=== PATIENT | female | born 2000 | race Hispanic/Latino ===

== ENCOUNTER 2024-06-22 15:18 | Emergency (ER) | payer SELFPAY ==
--- OUTSIDE RECORDS SUMMARY | 2024-06-22 15:23 | XMS REPORT | Continuity of Care Document ---
Author Name Unknown Address [address] [facility] [address] [place] [address] [facility] Address [address] [facility] [place] [address] Care Team Providers Care Processing Lead Name Role Phone Lexie Campuzano Attending Clinician Unav Ty Ta Attending Clinician Unavailable Piyush Banerjee Attending Clinician Unavailable Laura Whitney Attending Clinician Unavailable Carlo Dunbar Attending Clinician Unavailable Lexie Campuzano Admitting Clinician Unav Piyush Aguirre Admitting Clinician Unavailable Laura Whitney Admitting Clinician Unavailable Physician, No Primary or Family Admitting Clinic georges Unavailable Payers Payer Name Policy Type Policy Number Effective Date Expirati on Date Source Allergies, Adverse Reactions, Alerts Allergy Name Allergy Type Status Severity Reaction(s) Onset Date Inactive Date Treating Clinician Comments Source No Known Allergie s DA Active U 07-06 00:00: 00 [facility] No Known Allergie s DA Active U 07-05 00:00: 00 [facility] Procedures Procedure Date / Time Performed Performing Clinicia n Source [id number] 2021-07-12 00:00:00 CANCH.02 [facility] [id number] 2021-07-12 00:00:00 TAYAL01 [facility] Encounters Start Date/Time End Date/Time Encounter Type Admission Type Attending [facility] Care Department Encounter ID Source 2021-07-12 05:58:00 Inpatient EM [facility] [id number] [facility] 2024-01-28 17:40:00 2024-01-28 19:14:00 Emergency EM [facility] [id number] [facility] 2021-07-12 05:58:00 2021-07-25 10:51:00 Inpatient EM Piyush Banerjee [facility] [id number] [facility] 2021-07-06 18:09:00 2021-07-12 03:50:00 Inpatient EM Laura Whitney [facility] [id number] [facility] 2021-07-06 18:09:00 2021-07-06 07:11:00 Inpatient EM Laura Whitney [facility] [id number] [facility] 2021-04-02 16:48:00 2021-04-02 18:58:00 Emergency EM Carlo Dunbar [facility] ISAI [id number] [facility] Results Test Description Test Time Test Comments Results Result Co mments Source AG HEPATITIS B [id number] 09:17:00* Test Item Value Reference Range Interpretation Comme nts AG HEPATITIS B SURFACE (test code = HBSAG) Negative Negative Performed At : [facility] [address] [id number] Conor Plascencia MD Ph:[phone] HGB [id number] 07:16:00* Test Item Value Reference Range Interpretation Comme nts HEMOGLOBIN (test code = HGB) 10.8 G/DL 12.0-16.0 L HEMATOCRIT (test code = HCT) 31.3 % 37-47 L MEAN CELL HGB CONCENTRATION (test code = MCHC) 34.5 G/DL 33-37 N RAPID PLASMA [id number] 10:12:00* Test Item Value Reference Range Interpretation Comme nts RAPID PLASMA REAGIN (test co de = RPR) Nonreactive Nonreactive DRUG OF ABUSE SCREEN [id number] 08:28:00* Test Item Value Reference Range Interpretation Comments UR COCAINE (test code = COCAU) NEGATIVE NEGATIVE UR MDMA (test code = MDMAQLU) POSITIVE NEGATIVE A If confirmatory testing required, contact laboratory. UR CANNABINOIDS (test code = CANU) POSITIVE NEGATIVE A If confirmato ry testing required, contact laboratory. UR AMPHETAMINE (test code = AMPHU) NEGATIVE NEGATIVE UR BARBITURATE QUAL (test code = BARBQLU) NEGATIVE NEGATIVE UR BENZODIAZEPINE (test code = BENZU) NEGATIVE NEGATIVE UR OPIATES QUAL (test code = OPIAQLU) NEGATIVE NEGATIVE UR PHENCYCLIDINE (PCP) (test code = PHENCU) NEGATIVE NEGATIVE Urine Drug Abuse Screen provides preliminary results thatmay be confirmed by alternate methods (i.e., GC/MS) [facility]. Results of screen may not be usedin criminal justice, job performance or professionalcredential review, or custody issues. Negative Mentone Level ng/ml ----- Cocaine 300 Methamphetamine (Ecstacy) 500 Cannabinoids (THC) 50 Amphetamine 1000 Barbiturates 200 Benzodiazepines 200 Opiates 300 Phencyclidine (PCP) 25 COVID 19 Asymptomatic IH [id number] 07:48:00* Test Item Value Reference Range Interpretation Comments COVID 19 Asymptomatic IH AG (test code = COVNONPUIAG) NEGATIVE Negative " The Leigh Ann SARS Antigen MIGUEL does not differentiate betweenSARS-CoV and SARS-CoV-2 " The Leigh Ann SARS Antigen MIGUEL employs immunofluorescencetechnology in a sandwich design that is used with Leigh Ann todetect nucleocapsid protein from SARS-CoV and SARS-CoV-2.This test allows for the detection of SARS-CoV nghIPON-ExE-6. The test detects, but does not differentiate,between the two viruses. " Results are for the identification of PPXK-TcK-5jthxwmlpactt protein antigen. Antigen is generallydetectable in upper respiratory specimens during the acutephase of infection. Positive results indicate the presenceof viral antigens, but clinical correlation with patienthistory and other diagnostic information is necessary todetermine infection status. Positive results do not rule outbacterial infection or co-infection with other viruses. Theagent detected may not be the definite cause of disease. " Negative results should be treated as presumptive " This test has not been FDA cleared or approved; the testhas been authorized by FDA under an Emergency UseAuthorization (EUA) for use by laboratories certified undert CLIA that meet the requirements to perform moderate,high or waived complexity tests. This test is authorized foruse at the Point of Care (POC), i.e., in patient caresettings operating under a CLIA Certificate of Waiver,Certificate of Compliance, or Certificate of Accreditation Use BINAX NOW test: YESCBC W/AUTO [id number] 07:04:00* Test Item Value Reference Range Interpretation Comme nts WHITE BLOOD CELL (test code = WBC) 14.38 x10 3/uL 4.80-10.80 H RED BLOOD CELL (test code = RBC) 3.86 x10 6/uL 4.2-5.4 L HEMOGLOBIN (test code = HGB) 12.2 G/DL 12.0-16.0 N HEMATOCRIT (test code = HCT) 35.4 % 37-47 L MEAN CELL VOLUME (test code = MCV) 91.7 FL 81-99 N MEAN CELL HGB (test code = MCH) 31.6 PG 27-31 H MEAN CELL HGB CONCENTRATION (test code = MCHC) 34.5 G/DL 33-37 N RED CELL DISTRIBUTION WIDTH (test code = RDW) 12.5 % 11.5-14.5 N PLATELET COUNT (test code = PLT) 249 x10 3/uL 150-450 N MEAN PLATELET VOLUME (test code = MPV) 10.1 FL 7.4-10.4 N NEUTROPHIL % (test code = NT%) 89.0 % 42-86 H IMMATURE GRANULOCYTE % (test code = IG%) 0.9 % 0.0-2.0 N LYMPHOCYTE % (test code = LY%) 7.2 % 24-44 L MONOCYTE % (test code = MO%) 2.7 % 0.0-4.0 N EOSINOPHIL % (test code = EO%) 0.0 % 0.0-2.7 N BASOPHIL % (test code = BA%) 0.2 % 0.0-0.5 N NUCLEATED RBC % (test code = NRBC%) 0.0 % 0.0-0.0 N NEUTROPHIL # (test code = NT#) 12.79 x10 3/uL 1.8-7.7 H IMMATURE GRANULOCYTE # (test code = IG#) 0.13 x10 3/uL 0.00-0.03 H LYMPHOCYTE # (test code = LY#) 1.04 x10 3/uL 1.0-4.8 N MONOCYTE # (test code = MO#) 0.39 x10 3/uL 0.0-0.8 N EOSINOPHIL # (test code = EO#) 0.00 x10 3/uL 0.0-0.5 N BASOPHIL # (test code = BA#) 0.03 x10 3/uL 0.0-0.2 N NUCLEATED RBC # (test code = NRBC#) 0.0 X10 3/uL 0.0-0.2 N [id number] 11:47:00* Test Item Value Reference Range Interpretation Comme nts GLUBED (test code = GLUBED) 71 MG/DL 65-99 N Performed by cer tified tufting machine operator single needle at [facility] LIPID PROFILE (CORONARY RISK)2021-07-06 19:49:00* Test Item Value Reference Range Interpretation Comme nts TRIGLYCERIDES (test code = TRIG) 136 MG/DL 30-200 N CHOLESTEROL (test code = CHOL) 302 MG/DL 122-200 H CHOLESTEROL/HDL RATIO (test code = CHOLHDL) 3.2 1.5-4.5 N 1. Initial classification based on total cholesterol: <200 mg/dl Desirable cholesterol 200-239 mg/dl Borderline high risk cholesterol >240 mg/dl High risk cholesterol2. Initial classification based on LDL cholesterol: <130 mg/dl Desirable LDL cholesterol 130-159 mg/dl Borderline high risk LDL >159 mg/dl High risk LDL cholesterol3. HDL < 35 mg/dl represent increased CHD risk; HDL > 60 mg/dl represent decreased CHD risk.4. Chol/HDL > 5.0 represent increased CHD risk in men; Chol/HDL > 4.5 represent increased CHD risk in women. HDL CHOLESTEROL (test code = HDL) 95 MG/DL 40-60 H LIPOPROTEIN LDL (test code = LDL) 180 MG/DL 62-130 H LIPOPROTEIN VLDL (test code = VLDL) 27 MG/DL 3-60 N THYROID STIMULATING [id number] 19:49:00* Test Item Value Reference Range Interpretation Comme nts THYROID STIMULATING HORMONE (test code = TSH) 1.61 0.42-5.47 N Micro- International Units/LResults of this assay method may be falsely depressed orelevated if patient is taking high doses of Biotin. GLYCOSYLATED HEMOGLOBIN (HA1C)2021-07-06 19:44:00* Test Item Value Reference Range Interpretation Comme nts GLYCOSYLATED HEMOGLOBIN (HA1 C) (test code = GLYHGB) 5.2 % TOT HB 4.5-6.2 N - DUP VEIN [id number] 15:44:00 [facility] : 2000 Sex: F Patient Name: LAUREN AGUIRRE Unit No: [id number] EXAMS: CPT CODE: [id number] DUP V EIN NAIN [id number] EXAMINATION: - DUP VEIN NAIN. LOCATION: 2. HISTORY: Chest pain, SOB, abdominal pain,chest tightness, currently . COMPARISON: CTA chest 07/06/2021. FINDINGS: Sonographic evaluation of bilateral lower extremities was performed from the common femoral veins to the popliteal trifurcations utilizing grayscale, pulse Doppler, and color flow imaging. The veins are normally compressible. There is normal respiratory phasicity and augmentation demonstrated. Color flow is demonstrated. The visualized proximal calf veins demonstrate flow on color imaging. IMPRESSION: No evidence ofdeep venous thrombus in the visualized portions of the bilateral lower extremities. at 1544 Reported and signed by: Shayan Marquez MD CC: Lexie Campuzano MD; Fany Aviles MD; Kimberli Velásquez MD Technologist: Mackenzie Myles Trnscrbd D/ (1544) [email or web address] Orig Print D/T: S: 07/06/2021 (6881) Probe: [facility] NAME: LAUREN AGUIRRE [address] PHYS: [place] [address] : 2000 AGE: 21 SEX: F LOC: ANA PHONE #: [phone] EXAM DATE: 07/06/2021 STATUS: REG ER FAX #: RAD NO: Page 1 Signed ReportCOVID 19 Asymptomatic IH AG 2021-07-06 15:30:00* Test Item Value Reference Range Interpretation Comments COVID 19 Asymptomatic IH AG (test code = COVNONPUIAG) NEGATIVE Negative " The Leigh Ann SARS Antigen MIGUEL does not differentiate betweenSARS-CoV and SARS-CoV-2 " The Leigh Ann SARS Antigen MIGUEL employs immunofluorescencetechnology in a sandwich design that is used with Leigh Ann todetect nucleocapsid protein from SARS-CoV and SARS-CoV-2.This test allows for the detection of SARS-CoV livXYGX-PuE-2. The test detects, but does not differentiate,between the two viruses. " Results are for the identification of JULV-UpY-5cbhxlskczngj protein antigen. Antigen is generallydetectable in upper respiratory specimens during the acutephase of infection. Positive results indicate the presenceof viral antigens, but clinical correlation with patienthistory and other diagnostic information is necessary todetermine infection status. Positive results do not rule outbacterial infection or co-infection with other viruses. Theagent detected may not be the definite cause of disease. " Negative results should be treated as presumptive " This test has not been FDA cleared or approved; the testhas been authorized by FDA under an Emergency UseAuthorization (EUA) for use by laboratories certified undert CLIA that meet the requirements to perform moderate,high or waived complexity tests. This test is authorized foruse at the Point of Care (POC), i.e., in patient caresettings operating under a CLIA Certificate of Waiver,Certificate of Compliance, or Certificate of Accreditation - [place] PULM PERF [id number] 14:58:00 [facility] : 2000 Sex: F Patient Name: LAUREN AGUIRRE Unit No: [id number] EXAMS: CPT CODE: [id number] ME PULM PERF PARTIC [id number] Reason: CP/SOB Radionuclide perfusion lung scan HISTORY: Chest pain and shortness of breath COMMENT: Routine images of the lungs were obtained after intravenous injection of 3.6 mCi 99 M technetium MAA. COMPARISON: Recent CT which was nondiagnostic. There is normal perfusion toboth lungs with no segmental or subsegmental defects. IMPRESSION: Normal perfusion scan. at 1458 Reported and signed by: Nguyen Friedman MD CC:Lexie Campuzano MD; Fany Aviles MD; Kimberli Velásquez MD Technologist: QAMAR Garcia Trscrpt Dt/ (1458)[email or web address] Orig Print D/T: S: 07/06/2021 (0559) [facility] NAME: LAUREN ANG [address] PHYS: [place] [address] : 2000 AGE: 21 SEX: F LOC: ANA PHONE #: [phone] EXAM DATE: 07/06/2021 STATUS: REG ER FAX #: RAD NO: DC Dt: PAGE 1 Signed Report- CTA CHEST FOR [id number] 11:46:00 [facility] : 2000 Sex: F Patient Name: LAUREN AGUIRRE Unit No: [id number] EXAMS: CPT CODE: [id number] [place] [id number] Reason: CP/SOB LOCATION: [facility] EXAM: CTA CHEST WITH CONTRAST, PE PROTOCOL INDICATION: CP/SOB COMPARISON: None TECHNIQUE: Helically acquired axial CT images of the chest were obtained with reconstructions in the coronal and sagittal planes without 3D reformations. Up-to-date CT equipment and radiation dose reduction techniques were utilized. Automatic exposure control was utilized.MIP coronal reformats provided. FINDINGS: Lines and Tubes: None Mediastinum and Vasculature: There are no intrathoracic lymph nodes meeting CT criteria for enlargement. The heart is not enlarged. There is no pericardial effusion.. The thoracic aorta and pulmonary artery are normal in size. Contrast inadequately opacifies the pulmonary arteries. Airways/Pleura/Lungs: The trachea is patent. The pleura is unremarkable. The lungs are clear Bones and Soft tissues: There is no acute osseous abnormality.. The overlying soft tissues are unremarkable. Abdomen: The visualized portions of the upper abdomen appear unremarkable. IMPRESSION: Nondiagnostic in evaluation for acute pulmonary artery embolismdue to inadequate opacification of the pulmonary arteries. Clear lungs. at 1146 Reported and signed by: Anthony Marroquin MD CC: Lexie Campuzano MD; Fany Aviles MD; Kimberli Velásquez MD Technologist: Christie Lee CT; MALATHI Thomas;... Trscrpt Dt/ (1146)t.[email or web address] Orig Print D/T: S: 07/06/2021 (1149) CTDI: DLP: [facility] Area NAME: LAUREN AGUIRRE [address] [facility] PHYS: [place] [address] : 2000 AGE: 21 SEX: F LOC: ANA PHONE #: [phone] EXAM DATE: 07/06/2021 STATUS: REG ER FAX #: RAD NO: DC Dt: PAGE 1 Signed ReportTROP-I HIGH [id number] 11:13:00* Test Item Value Reference Range Interpretation Comme nts TROP-I HIGH SENSITIVITY (test code = TROPIHS) 4 ng/L < 51 This is a new test. A transition from TropI to TropIHS. The normal ranges and reporting units have changed. Pleasereview results carefully. - The use of serial sampling and testing protocol is a recommended practice.- An elevated troponin level alone is often not sufficient for diagnosis of myocardial infarction.Results of this assay method may be falsely depressed orelevated if patient is taking high doses of Biotin. TROP-I HIGH [id number] 09:39:00* Test Item Value Reference Range Interpretation Comme nts TROP-I HIGH SENSITIVITY (test code = TROPIHS) 5 ng/L < 51 This is a new te st. A transition from TropI to TropIHS. The normal ranges and reporting units have changed. Pleasereview results carefully.Results above 51 for females and 76 for males are consistent with IFCC Committee recommendations to use the 99th percentile of a normal population as a reference decision-limit. - The use of serial sampling and testing protocol is a recommended practive.- An elevated high sensitiveity troponin level alone is often not sufficient for diagnosis of myocardial infarction.- In order to distinguish acute elevations of high sensitivity troponin from other clinical conditions, the Fourth [place] Definition of Myocardial Infarction stresses clinical assessment and demonstration of a rise and/or fall in serial troponin results above the upper reference limit.Results of this assay method may be falsely depressed orelevated if patient is taking high doses of Biotin. DRUG OF ABUSE SCREEN [id number] 09:37:00* Test Item Value Reference Range Interpretation Comments UR COCAINE (test code = COCAU) NEGATIVE NEGATIVE UR MDMA (test code = MDMAQLU) NEGATIVE NEGATIVE UR CANNABINOIDS (test code = CANU) POSITIVE NEGATIVE A If confirmato ry testing required, contact laboratory. UR AMPHETAMINE (test code = AMPHU) NEGATIVE NEGATIVE UR BARBITURATE QUAL (test code = BARBQLU) NEGATIVE NEGATIVE UR BENZODIAZEPINE (test code = BENZU) NEGATIVE NEGATIVE UR OPIATES QUAL (test code = OPIAQLU) NEGATIVE NEGATIVE UR PHENCYCLIDINE (PCP) (test code = PHENCU) NEGATIVE NEGATIVE Urine Drug Abuse Screen provides preliminary results thatmay be confirmed by alternate methods (i.e., GC/MS) at [facility]. Results of screen may not be usedin criminal justice, job performance or professionalcredential review, or custody issues. Negative Mentone Level ng/ml ----- Cocaine 300 Methamphetamine (Ecstacy) 500 Cannabinoids (THC) 50 Amphetamine 1000 Barbiturates 200 Benzodiazepines 200 Opiates 300 Phencyclidine (PCP) 25 BASIC METABOLIC [id number] 08:16:00* Test Item Value Reference Range Interpretation Comme nts SODIUM (test code = NA) 138 MMOL/L 133-145 N POTASSIUM (test code = K) 3.9 MMOL/L 3.6-5.2 N CHLORIDE (test code = CL) 103 MMOL/L 100-108 N CARBON DIOXIDE (test code = CO2) 26 MMOL/L 22-32 N GLUCOSE (test code = GLU) 87 MG/DL 65-99 N Results of this assay method may be falsely depressed orelevated if patient is taking sulfasalazine. BLOOD UREA NITROGEN (test code = BUN) 7 MG/DL 6-20 N GLOMERULAR FILTRATION RATE (test code = GFR) 162 71-165 N Reporting units: mL/min/1.73m\\S\\2 (Modified MDRD Formula) CREATININE (test code = CREAT) 0.48 MG/DL 0.60-1.00 L CALCIUM (test code = CA) 8.9 MG/DL 8.7-10.5 N HEPATIC FUNCTION [id number] 08:16:00* Test Item Value Reference Range Interpretation Comme nts TOTAL PROTEIN (test code = PROT) 7.2 G/DL 6.4-8.2 N ALBUMIN (test code = ALB) 2.9 G/DL 3.4-5.0 L GLOBULIN (test code = GLOB) 4.3 G/DL 1.5-3.8 H ALBUMIN/GLOBULIN RATIO (test code = A/G) 0.7 1.1-2.2 L BILIRUBIN TOTAL (test code = BILT) 0.6 MG/DL 0.0-1.0 N BILIRUBIN DIRECT (test code = BILD) 0.1 MG/DL 0.0-0.3 N BILIRUBIN INDIRECT (test code = BILIND) 0.5 MG/DL 0.0-0.7 N SGOT/AST (test code = AST) 24 Units/L 15-37 N Results of this assay method may be falsely depressed orelevated if patient is taking sulfasalazine. SGPT/ALT (test code = ALT) 16 Units/L 30-65 L Results of this assay method may be falsely depressed orelevated if patient is taking sulfasalazine. ALKALINE PHOSPHATASE TOTAL (test code = ALKP) 175 Units/L 50-136 H [id number] 08:16:00* Test Item Value Reference Range Interpretation Comme nts LIPASE (test code = LIP) 159 Units/L 73-393 N CBC W/AUTO [id number] 07:59:00* Test Item Value Reference Range Interpretation Comme nts WHITE BLOOD CELL (test code = WBC) 9.05 x10 3/uL 4.80-10.80 N RED BLOOD CELL (test code = RBC) 3.97 x10 6/uL 4.2-5.4 L HEMOGLOBIN (test code = HGB) 12.4 G/DL 12.0-16.0 N HEMATOCRIT (test code = HCT) 37.0 % 37-47 N MEAN CELL VOLUME (test code = MCV) 93.2 FL 81-99 N MEAN CELL HGB (test code = MCH) 31.2 PG 27-31 H MEAN CELL HGB CONCENTRATION (test code = MCHC) 33.5 G/DL 33-37 N RED CELL DISTRIBUTION WIDTH (test code = RDW) 12.5 % 11.5-14.5 N PLATELET COUNT (test code = PLT) 244 x10 3/uL 150-450 N MEAN PLATELET VOLUME (test c ode = MPV) 10.4 FL 7.4-10.4 N NEUTROPHIL % (test code = NT%) 66.4 % 42-86 N IMMATURE GRANULOCYTE % (test code = IG%) 1.2 % 0.0-2.0 N LYMPHOCYTE % (test code = LY%) 24.0 % 24-44 N MONOCYTE % (test code = MO%) 7.0 % 0.0-4.0 H EOSINOPHIL % (test code = EO%) 1.1 % 0.0-2.7 N BASOPHIL % (test code = BA%) 0.3 % 0.0-0.5 N NUCLEATED RBC % (test code = NRBC%) 0.0 % 0.0-0.0 N NEUTROPHIL # (test code = NT#) 6.01 x10 3/uL 1.8-7.7 N IMMATURE GRANULOCYTE # (test code = IG#) 0.11 x10 3/uL 0.00-0.03 H LYMPHOCYTE # (test code = LY#) 2.17 x10 3/uL 1.0-4.8 N MONOCYTE # (test code = MO#) 0.63 x10 3/uL 0.0-0.8 N EOSINOPHIL # (test code = EO#) 0.10 x10 3/uL 0.0-0.5 N BASOPHIL # (test code = BA#) 0.03 x10 3/uL 0.0-0.2 N NUCLEATED RBC # (test code = NRBC#) 0.0 X10 3/uL 0.0-0.2 N UA RFLX MICROSCOPIC [id number] 07:48:00* Test Item Value Reference Range Interpretation Comme nts UA COLOR (test code = COLU) Light-Yellow YELLOW UA APPEARANCE (test code = APPU) Turbid CLEAR UA GLUCOSE DIPSTICK (test code = DGLUU) NORMAL mg/dL NEGATIVE UA BILIRUBIN DIPSTICK (test code = BILU) NEGATIVE NEGATIVE UA KETONE DIPSTICK (test code = KETU) NEGATIVE mg/dL NEGATIVE UA SPECIFIC GRAVITY (test code = SGU) 1.024 1.001-1.035 N UA BLOOD DIPSTICK (test code = ITZEL) NEGATIVE NEGATIVE UA PH DIPSTICK (test code = CARMEN) 8.0 5.5-7.0 H UA PROTEIN DIPSTICK (test code = PROU) 20 mg/dL NEGATIVE UA UROBILINOGEN DIPSTICK (test code = URO) NORMAL mg/dL NORMAL UA NITRITE DIPSTICK (test code = FALLON) NEGATIVE NEGATIVE UA LEUKOCYTE ESTERASE DIPSTICK (test code = LEUU) 75 NEGATIVE A UA COMMENT (test code = COMU) VOLUME 10-12 ML URINE SPECIMEN DESCRIPTION (test code = UASPEC) Clean Catch UA WBC (test code = WBCU) < 10 #/HPF 0-10 UA SQUAMOUS CELLS (test code = SQU) > 100 #/LPF <100 A UA CULTURE NEEDED? (test code = UACULT) Criteria not met Indication for culture: RiskForSepsis-no oth srcURINE SOURCE: Clean CatchUA [id number] 07:48:00* Test Item Value Reference Range Interpretation Comme nts UA RBC (test code = RBCU) 0-2 #/HPF NONE SEEN UA BACTERIA (test code = BACU) Trace HPF NONE SEEN UA MUCUS (test code = MUCU) RARE #/lpf NONE SEEN Indication for culture: RiskForSepsis-no oth srcURINE SOURCE: Clean CatchUR HCG [id number] 07:36:00* Test Item Value Reference Range Interpretation Comme nts UR HCG QUAL (test code = HCGQLU) POSITIVE NEGATIVE A Called to and re ad back by ANDREW RODRIGUEZ RN .[id number], 07/06/21.Conditions other than may give positive resultswith this assay. A confirmed diagnosis of shouldbe made only after clinical evaluation by a physician. Non-Human Chorionic Gonadotropin (HCG) substances such asanti-animal immunoglobulin antibodies (Human Anti-MouseAntibodies or HAMA), trophoblastic disease, and neoplasms,may give positive results. - US PREG AFTER [id number] 18:40:00 [facility] : 2000 Sex: F Patient Name: LAUREN AGUIRRE Unit No: [id number] EXAMS: CPT CODE: [id number] US PREG AFTER 1ST TRI [id number] EXAM: - US PREG AFTER 1ST TRI LOCATION: H65 HISTORY: EGA, VAGINAL BLEEDING COMPARISON: None FINDINGS: There is a single intrauterine fetus in cephalic presentation. Placenta isposterior-fundal. A 1.6 cm placental kitchen is noted at the superior margin of the placenta. There isno evidence of placenta previa. Amniotic fluid volume is within normal limits with VONDA 17.14 cm with single deepest pocket measuring up to 3.95 cm. Cervical length is 3.01 cm. heart rate: 152 BPM Average sonographic age of the fetus is 23 weeks with JOHAN of 07/30/2021 based on the following: Biparietal diameter: 5.94 cm Head circumference: 22.0 cm Abdominal circumference: 18.29 cm Femur length: 3.9 cm Estimated weight: 556.05 grams IMPRESSION: 1. Single live intrauterine fetus at 23 weeks sonographic age. 2. No acute findings. at 1840 Reported and signed by: Surendra Roa MD CC: Lexie Campuzano MD; Carlo Dunbar MD Technologist: Catherine Brock Trnscrbd D/ (1839) [id number] Orig Print D/T: S: 04/02/2021 (1842) Probe: [facility] NAME: LAUREN AGUIRRE [address] PHYS: Carlo Hopson [place] [address] : 2000 AGE: 21 SEX: F LOC: MartellCOLLEENPHONE #: [phone] EXAM DATE: 04/02/2021 STATUS: REG ER FAX #: RAD NO: Page 1 Signed Report Notes Date/Time Note Provider Source 2024-01-28 18:17:00 [facility] ([facility]) OR A CAMPUS OF [facility] EMERGENCY PROVIDER REPORT REPORT#:[id number] REPORT STATUS: Signed DATE:01/28/24 TIME: 1816 PATIENT: LAUREN AGUIRRE UNIT #: [id number] ROOM/BED: : 99 AGE: 23 SEX: F PCP PHYS: Lexie Campuzano MD SERVICE AUTHOR: Arthur Montoya PA REP SRV REP SRV TM: 1816 * ALL edits or amendments must be made on the electronic/computer document * Arthur Montoya 01/28/241816: HPI-General Illness General Initial Greet Date/Time 01/28/241807 Presentation Chief Complaint __ (FEVER) Free Text HPI Notes Free Text HPI Notes 23-year-old otherwise healthy female presents to the emergency department with fever that is intermittent with cough for the past week. Patient is not taking any medications for their symptoms. Patient denies any recent travel or sick contacts. Review of Systems / Other Histories Constitutional: Negative except as documented in history of present illness. Eye: Negative except as documented in history of present illness. Ear/Nose/Mouth/Throat: Negative except as documented in history of present illness. Respiratory: Negative except as documented in history of present illness. Cardiovascular: Negative except as documented in history of present illness. Gastrointestinal: Negative except as documented in history of present illness. Genitourinary: Negative except as documented in history of present illness. Musculoskeletal: Negative except as documented in history of present illness. Neurologic: Negative except as documented in history of present illness. Psychiatric: Negative except as documented in history of present illness. Physical Exam General: alert, no acute distress, nontoxic appearing Derm: warm, dry, intact Head: no trauma, normocephalic. Neck: trachea midline. Eye: normal conjunctiva, sclera clear ENMT: oral mucosa moist, reddened oropharynx with no tonsillar enlargement or exudates, halitosis Cardiovascular: regular rate and rhythm, normal peripheral perfusion, no edema. Respiratory: lungs CTA, breath sounds equal, respirations non labored , equal chest wall expansio. : No CVA tenderness Musculoskeletal: Moves extremities freely, no gross atrophy or deformities noted Neurological: affect appropriate for age, speech normal. Medical decision making: CC: flu like symptoms Ddx: Covid-19, Influenza virus, RSV, URI, acute bronchitis, unspecifed viral syndrome Positive influenza testing. Pt is is overall stable and nontoxic appearing. Was treated here with Tylenol ibuprofen informed to continue OTC Tylenol ibuprofen at home for symptomatic relief of fever and chills. She is out of the window for Tamiflu. Pt informed of symptomatic care of 7-9hrs of sleep and 2-3liters of water per day, tylenol OTC for pain and antipyretic control, isolation, and the need for return precautions. Patient did agree to outpatient management after having shared decision making with no further needs prior to discharge. Past Medical History - Adult Stated Complaint CHEST PAIN SOB CHILLS SHAKING Allergies Coded Allergies: No Known Allergies (07/06/21) Home Medications Active Scripts IBUPROFEN (MOTRIN) 600 MG PO Q6HR IBUPROFEN (MOTRIN) 600 MG PO Q6HR #30 TAB Prov: 07/12/21 traMADol/APAP (ULTRACET 37.5/325 MG) 1 TAB PO Q3H PRN PRN MILD PAIN (SCORE 1-3) traMADol/APAP (ULTRACET 37.5/325 MG) 1 TAB PO Q3H PRN PRN MILD PAIN (SCORE 1-3) #15 TAB Prov: 07/12/21 ARIPiprazole 2 MG PO DAILY ARIPiprazole 2 MG PO DAILY #30 TAB Prov: 07/24/21 SERTRALINE (ZOLOFT) 100 MG PO DAILY SERTRALINE (ZOLOFT) 100 MG PO DAILY #30 TABS Prov: 07/24/21 hydrOXYzine HCL (ATARAX) 25 MG PO Q6H PRN PRN ANXIETY hydrOXYzine HCL (ATARAX) 25 MG PO Q6H PRN PRN ANXIETY #90 TAB Prov: 07/24/21 traZODone (DESYREL) 150 MG PO BEDTIME traZODone (DESYREL) 150 MG PO BEDTIME #30 TABS Prov: 07/24/21 Reported Medications PNV WITH FE FUMARATE/FA () 1 TAB PO DAILY Physical Exam Vital Signs Vital Signs First Documented: Result Date Time Pulse Ox 98 01/27 1806 B/P 131/80 01/27 1806 B/P Mean 97 01/27 180 O2 Delivery Room air 01/27 1806 Temp 38.5 01/27 180 Pulse 94 01/27 1806 Resp 16 01/27 180 Last Documented: Result Date Time Pulse Ox 98 01/27 1806 B/P 131/80 01/27 180 B/P Mean 97 01/27 180 O2 Delivery Room air 01/27 1806 Temp 38.5 01/27 180 Pulse 94 01/27 1806 Resp 16 01/27 180 Review of Vital Signs Reviewed Interpretation Diagnostics Lab Results Interpretation Results Laboratory Tests: 01/28 1816 Serology SARS CoV-2 RNA Rapid GREGORY (Negative) Negative Microbiology: Date/Time Procedure - Status Source Growth 01/28 1816 Influenza Virus Type B Antigen - COMP NASOPHARG 01/28 1816 Influenza Virus Type A Antigen - COMP NASOPHARG Re-Evaluation [facility] ED Course Medication(s) Ordered Medication(s) Ordered: Central Nervous System Agents Sig/Bree Start time Last Medication Dose Route Stop Time Status Admin Acetaminophen 1,000 MG X1ED STA 01/27 181 DC 01/27 PO 01/27 1813 1815 Ibuprofen 600 MG X1ED STA 01/27 1812 DC 01/27 PO 01/27 1813 1815 Patient Discharge Departure Vital Signs/Condition Vital Signs First Documented: Result Date Time Pulse Ox 98 01/27 1806 B/P 131/80 01/27 1806 B/P Mean 97 01/27 180 O2 Delivery Room air 01/27 180 Temp 38.5 01/27 180 Pulse 94 01/27 180 Resp 16 01/27 180 Last Documented: Result Date Time Pulse Ox 98 01/27 1806 B/P 131/80 01/27 1806 B/P Mean 97 01/27 180 O2 Delivery Room air 01/27 1806 Temp 38.5 01/27 180 Pulse 94 01/27 180 Resp 16 01/27 180 All vital signs available at the time of this entry have been reviewed. Condition Stable Clinical Impression Clinical Impression Primary Impression: Influenza A Time of Impression 1901 Disposition Decision Discharge )( Discharged to Home Yes )( Time 190 )( Date 01/28/24 Discharge/Care Plan Patient Instructions ED Influenza (Adult) [place] 01/29/24 0616: Patient Discharge Departure Discharge/Care Plan Referrals Provider Referral: Nai Suárez MD Address: [address] [place] [address] Provider Referral: Fany Banda PRESALES ENGINEER-C Address: [id number] [place] [address] at 1905 at 0616 RPT #:[id number] END OF REPORT [facility] 2021-07-17 07:50:00 [facility] ([facility]) OB Postpart Progr Note REPORT#:[id number] REPORT STATUS: Signed DATE:07/17/21 TIME: 0750 PATIENT: LAUREN AGUIRRE UNIT #: [id number] ROOM[address]BED: [address] : 99 AGE: 21 SEX: F ATTEND: Lexie Campuzano MD ADM AUTHOR: Madeline Mahajan MD * ALL edits or amendments must be made on the electronic/computer document * Subjective Subjective Admission EGA: Weeks: 37 Days: 4 Status/Day: post (5) Patient reports: Patient reports: Yes no complaints, Yes normal lochia, Yes pain management effective, Yes tolerating po well, Yes voiding well, Yes voiding without pain, Yes tolerating ambulation, Yes flatus, Yes bowel movement, No nausea, No vomiting, No excessive bleeding, No abdominal pain, No perineal pain, No difficulty nursing, No headache, No blurred vision Objective Nursing Documentation Review Nursing Data: The data set between the solid lines has been imported from nursing documentation. Any exceptions have been noted below under Provider comments. Feeding preference: Post hemorrhage risk score: Low Risk for Hemorrhage. Provider comments on imported nursing data: [] General VS: Vital Signs: Date Time Temp Pulse Resp B/P B/P Pulse O2 O2 Flow FiO2 Mean Ox Delivery Rate 07/16 2308 97.4 54 16 107/66 100 07/16 1610 98.1 70 16 105/69 99 07/16 0800 97.9 70 16 102/67 99 PATIENT WEIGHT: Weight (lb): 156 Weight (oz): 4.92 Weight (kg): 70.900 Physical Exam Abdomen: soft, no abnormal tenderness Fundus: firm, below the umbilicus, non-tender Lochia: normal Lower extremities: Edema: none Calf tenderness: negative Diagnosis, Assessment Plan Diagnosis, Assessment Plan Assessment: nml progress, nutrit. defiency anemia, Major Depressive disorder. Transferred from [place] for delivery and would like to be transferred back tomorrow Plan: routine care, discharge today, return to [facility]- waiting on bed Waiting on [place] [facility] at 0751 RPT #:[id number] END OF REPORT [facility] 2021-07-15 08:34:00 [facility] ([facility]) OB Postpart Progr Note REPORT#:[id number] REPORT STATUS: Signed DATE:07/15/21 TIME: 833 PATIENT: LAUREN AGUIRRE UNIT #: [id number] ROOM/BED: [facility]11-1 : 99 AGE: 21 SEX: F ATTEND: Lexie Campuzano MD ADM AUTHOR: Madeline Mahajan MD * ALL edits or amendments must be made on the electronic/computer document * Subjective Subjective Admission EGA: Weeks: 37 Days: 4 Status/Day: post (3) Patient reports: Patient reports: Yes no complaints, Yes normal lochia, Yes pain management effective, Yes tolerating po well, Yes voiding well, Yes voiding without pain, Yes tolerating ambulation, Yes flatus, Yes bowel movement, No nausea, No vomiting, No excessive bleeding, No abdominal pain, No perineal pain, No difficulty nursing, No headache, No blurred vision Objective Nursing Documentation Review Nursing Data: The data set between the solid lines has been imported from nursing documentation. Any exceptions have been noted below under Provider comments. Feeding preference: Post hemorrhage risk score: Low Risk for Hemorrhage. Provider comments on imported nursing data: [] General VS: Vital Signs: Date Time Temp Pulse Resp B/P B/P Pulse O2 O2 Flow FiO2 Mean Ox Delivery Rate 07/15 0550 98.4 80 16 111/72 98 07/14 2327 97.7 56 16 110/70 98 07/14 1910 97.7 71 16 117/78 98 07/14 1635 97.9 70 16 106/63 98 PATIENT WEIGHT: Weight (lb): 156 Weight (oz): 4.92 Weight (kg): 70.900 Physical Exam Abdomen: soft, no abnormal tenderness Fundus: firm, below the umbilicus, non-tender Lochia: normal Lacerations: Perineal laceration(s): 1st Degree w/labia/skin (healing well) Lower extremities: Edema: none Calf tenderness: negative Diagnosis, Assessment Plan Diagnosis, Assessment Plan Assessment: nml progress, nutrit. defiency anemia, Major Depressive disorder. Transferred from [place] for delivery and would like to be transferred back tomorrow Plan: routine care, discharge today, return to [facility]- waiting on bed, Waiting on [place] Bed at 0836 RPT #:[id number] END OF REPORT [facility] 2021-07-14 10:20:00 [facility] ([facility]) OB Postpart Progr Note REPORT#:[id number] REPORT STATUS: Signed DATE:07/14/21 TIME: 1020 PATIENT: LAUREN AGUIRRE UNIT #: [id number] ROOM/BED: Y211-1 : 99 AGE: 21 SEX: F ATTEND: Lexie Campuzano MD ADM AUTHOR: Madeline Mahajan MD * ALL edits or amendments must be made on the electronic/computer document * Subjective Subjective Admission EGA: Weeks: 37 Days: 4 Status/Day: post (2) Patient reports: Patient reports: Yes no complaints, Yes normal lochia, Yes pain management effective, Yes tolerating po well, Yes voiding well, Yes voiding without pain, Yes tolerating ambulation, Yes flatus, No nausea, No vomiting, No excessive bleeding, No abdominal pain, No perineal pain, No difficulty nursing, No headache, No blurred vision Objective Nursing Documentation Review Nursing Data: The data set between the solid lines has been imported from nursing documentation. Any exceptions have been noted below under Provider comments. Feeding preference: Post hemorrhage risk score: Low Risk for Hemorrhage. Provider comments on imported nursing data: [] General VS: Vital Signs: Date Time Temp Pulse Resp B/P B/P Pulse O2 O2 Flow FiO2 Mean Ox Delivery Rate 07/13 1900 97.6 78 16 114/70 96 07/13 1630 87.0 07/13 1630 98.6 82 16 115/73 96 07/13 1200 79.0 07/13 1200 98.7 73 16 104/67 97 PATIENT WEIGHT: Weight (lb): 156 Weight (oz): 4.92 Weight (kg): 70.900 Physical Exam Abdomen: soft, no abnormal tenderness Fundus: firm, below the umbilicus, non-tender Lochia: normal Lacerations: Perineal laceration(s): 1st Degree w/labia/skin (healing well) Lower extremities: Edema: none Calf tenderness: negative Diagnosis, Assessment Plan Diagnosis, Assessment Plan Assessment: nml progress, nutrit. defiency anemia, Major Depressive disorder. Transferred from [place] for delivery and would like to be transferred back tomorrow Plan: routine care, discharge today, return to [facility] at 1021 RPT #:[id number] END OF REPORT [facility] 2021-07-13 08:11:00 [facility] ([facility]) OB Postpart Progr Note REPORT#:[id number] REPORT STATUS: Signed DATE:07/13/21 TIME: 08 PATIENT: LAUREN AGUIRRE UNIT #: [id number] ROOM/BED: D.Y211-1 : 99 AGE: 21 SEX: F ATTEND: Lexie Campuzano MD ADM AUTHOR: Jaclyn Mcfadden MD * ALL edits or amendments must be made on the electronic/computer document * Subjective Subjective Admission EGA: Weeks: 37 Days: 4 Status/Day: post (1) Patient reports: Patient reports: No no complaints Nursing reports: Nursing reports: No complaints Objective Nursing Documentation Review Nursing Data: The data set between the solid lines has been imported from nursing documentation. Any exceptions have been noted below under Provider comments. Feeding preference: Post hemorrhage risk score: Low Risk for Hemorrhage. Provider comments on imported nursing data: [] General VS: Vital Signs: Date Time Temp Pulse Resp B/P B/P Pulse O2 O2 Flow FiO2 Mean Ox Delivery Rate 07/13 0310 97.7 72 16 104/59 99 07/12 2100 97.4 79 16 116/75 99 07/12 1930 99.4 69 16 120/80 97 07/12 1525 98.5 70 16 111/68 99 07/12 1355 96.0 07/12 1355 72 18 129/77 07/12 1116 82.0 07/12 1116 78 118/65 07/12 1105 18 07/12 1104 79 99 05/11 1059 71 97 05/11 1054 72 97 05/11 1050 18 05/11 1049 73 97 05/11 1044 67 99 05/11 1039 97.0 05/11 1039 70 123/79 98 05/11 1035 18 05/11 1034 72 97 05/11 1029 69 98 05/11 1024 72 98 05/11 1020 18 05/11 1019 66 99 05/11 1014 84 99 05/11 1009 86.0 05/11 1009 74 111/71 99 05/11 1005 17 05/11 1004 69 97 05/11 0959 70 97 05/11 0954 70 98 05/11 0950 18 05/11 0949 71 98 05/11 0944 67 99 05/11 0939 73 99 05/11 0935 18 05/11 0934 69 97 05/11 0929 70 97 05/11 0928 75.0 05/11 0928 67 102/58 05/11 0924 71 97 05/11 0920 18 05/11 0919 68 97 05/11 0918 76.0 05/11 0918 68 102/59 05/11 0914 72 97 05/11 0909 70 97 05/11 0908 73.0 05/11 0908 69 101/58 05/11 0905 17 05/11 0904 70 97 05/11 0859 67 98 05/11 0858 75.0 05/11 0858 67 103/57 05/11 0854 65 100 05/11 0850 18 05/11 0849 68 98 05/11 0848 75.0 05/11 0848 70 105/56 05/11 0844 69 98 05/11 0839 70 97 05/11 0838 76.0 05/11 0838 69 104/59 05/11 0835 18 05/11 0834 68 98 05/11 0829 67 98 05/11 0828 81.0 05/11 0828 67 108/64 05/11 0824 66 100 05/11 0820 18 05/11 0819 71 100 05/11 0818 85.0 05/11 0818 65 113/66 05/11 0814 69 100 PATIENT WEIGHT: Weight (lb): 156 Weight (oz): 4.92 Weight (kg): 70.900 Physical Exam Abdomen: soft, no abnormal tenderness Fundus: firm, below the umbilicus, non-tender Lower extremities: Edema: none Calf tenderness: negative Result Findings/Data: Laboratory Tests: 07/13 0545 Hematology Hgb (12.0 - 16.0 G/DL) 10.8 L Hct (37 - 47 %) 31.3 L MCHC (33 - 37 G/DL) 34.5 Diagnosis, Assessment Plan Diagnosis, Assessment Plan Assessment: nml progress, nutrit. defiency anemia, Major Depressive disorder. Transferred from [place] for delivery and would like to be transferred back tomorrow Plan: routine care, discharge tomorrow at 0812 RPT #:[id number] END OF REPORT [facility] 2021-07-12 06:38:00 [facility] ([facility]) OR A CAMPUS OF [facility] EMERGENCY PROVIDER REPORT REPORT#:[id number] REPORT STATUS: Signed DATE:07/12/21 TIME: 06 PATIENT: LAUREN AGUIRRE UNIT #: [id number] ROOM/BED: Y289-1 AGE: 21 SEX: F PCP PHYS: Lexie Campuzano MD SERVICE AUTHOR: Sanjay Vizcaino MD * ALL edits or amendments must be made on the electronic/computer document * ISAI History Chief complaint: uterine contractions HPI: 21 yr old female was brought from [facility] for uterine contractions. She has seen Dr summers only one time during this . She e was admitted to that facility for suicidal and homicidal ideation. Her UDS was positive at the doctor's visit. history: : 2 Term: 0 : 1 Abortus: 0 Living children: 1 Complications (prev preg): none (PTL) Previous : none Current : LMP: 10/21/20 EDC: 07/28/21 EGA (weeks/days): 37 weeks Conditions of : hyperemesis gravidarum (almost no care) Past medical history: denies PMH (unable to take history) Past surgical history: denies PSH (unable to take history) Social history: unemployed, single Family history 1st Psychiatric hospitalization Medications: Home Medications: Medication Dose/Rte/Freq Days Qty Entered Last Max Daily Dose Reviewed PNV WITH FE 1 TAB PO DAILY 07/06/21 FUMARATE/FA 1711 () Strength: 1 EACH TAB Current Hospital Medications: Anti-Infective Agents Sig/Bree Start time Last Medication Dose Route Stop Time Status Admin Penicillin G 50 ML Q4H 07/12 1030 AC Potassium/Dextrose IV 07/22 1031 (PEN G POT/DEX-WATER 3 MMU/50 ML ISO-OSM) Penicillin G 5 MU ONCE 07/12 0615 CKD Potassium IV 07/22 0616 (PENICILLIN G POTASSIUM 5 MILLION UNIT VIAL) Sodium Chloride 100 ML (NORMAL SALINE 100ML IV MINI BAG) Cardiovascular Drugs Sig/Bree Start time Last Medication Dose Route Stop Time Status Admin Lidocaine HCl 30 ML ASDIR PRN 07/12 554 AC (LIDOCAINE 1% MPF LOCAL 09/11 555 30ML) Central Nervous System Agents Sig/Bree Start time Last Medication Dose Route Stop Time Status Admin Meperidine HCl 25 MG Q3H PRN PRN 07/12 0555 AC (DEMEROL 50MG/ML IV 07/23 555 INJECTION) Electrolytic, Caloric, And Sukumar Sig/Bree Start time Last Medication Dose Route Stop Time Status Admin Lactated Ringer's 1,000 ML .Q8H 07/12 0455 AC (LACTATED RINGERS IV 09/10 0456 1000ML) Lactated Ringer's 500 ML BOLUS 07/12 554 AC (LACTATED RINGERS IV 1000ML) Gastrointestinal Drugs Sig/Bree Start time Last Medication Dose Route Stop Time Status Admin Ondansetron HCl 4 MG Q8H PRN PRN 07/12 0455 AC (ZOFRAN 4 MG/2 ML) IV 09/11 555 Oxytocics Sig/Bree Start time Last Medication Dose Route Stop Time Status Admin Oxytocin/Sodium 500 ML BOLUS ONCE ONE 07/12 554 DC Chloride IV 07/12 0624 (NS 500ML + 30 UNITS OXYTOCIN) Oxytocin/Sodium 500 ML .Q10H 07/12 0455 AC Chloride IV 07/12 1554 (NS 500ML + 30 UNITS OXYTOCIN) Allergies Coded Allergies: No Known Allergies (07/06/21) Unable to obtain due to: uncooperative Review of Systems Constitutional: Denies: chills, fatigue, fever. Skin: Denies: abrasion, bruising, contusion. Allergy/Immun: Denies: allergic reaction. Eyes: Denies: redness, discharge. Respiratory: Denies: ELDER (dyspnea on exertion), SOB. Cardiovascular: Denies: chest pain. GI: Reports: abdominal pain. : Denies: dysuria, flank pain. Musculoskeletal: Denies: arthritis, joint swelling, lumbar pain. Heme: Denies: adenopathy, bleeding. Endocrine: Denies: cold intolerance, heat intolerance. Neuro: Denies: bladder dysfunction. Unable to obtain due to: pt is uncooperative and declines to talk to the nurse or myself Objective General VS: Last Documented: Result Date Time Pulse Ox 99 05/ 0543 Pulse 92 05/ 0543 B/P Mean 89.0 07/12 0430 B/P 115/72 05/11 0430 Vital Signs Date Temp Pulse Resp B/P B/P Mean Pulse Ox FiO2 07/12 70-93 115/72 89.0 91-100 PATIENT WEIGHT: Weight (lb): Weight (oz): Weight (kg): Physical Exam HEENT: normocephalic w/o injury Cardiac: regular rate and rhythm Lungs: clear to auscultation Breasts: deferred Neuro: Exam: alert, oriented x3, normal speech DTR's (lower extr): normal 1-2+ Abdomen: gravid, soft Musculoskeletal: normal inspection Genitourinary: no bladder distention, no flank pain Uterine activity: Monitor: toco Frequency (description): regular Frequency (minutes): 3 Duration (seconds): 40 Intensity: moderate Tachysystole: No Pelvic exam: Pelvis clinically adequate: yes Vulvar lesions: none Vagina: normal Uterus size in weeks: 36 Exam: soft, non-tender, approp size for gest age Cervical/ exam: Dilatation (cm): 8 Effacement (%): 70 station: - 2 presentation: cephalic FHR evaluation: Baseline: 140 bpm Variability: moderate 6-25 bpm Accelerations: 15 X 15 Decelerations: none FHR category: category 1 Membranes: Membranes: Intact Lower extremities: Edema: none Toro's sign: negative Calf tenderness: negative Treatment Prophylaxis Treatment Prophylaxis Urinary cath documentation: Pt was assessed and found to be in active labo at /-2 Admit to L D Diagnosis, Assessment Plan Diagnosis, Assessment Plan Free Text A P: DX: IUP 37.5 weeks No care Plan: Admit to L D at 0654 RPT #:[id number] END OF REPORT [facility] 2021-07-06 08:59:00 [facility] ([facility]) OR A CAMPUS OF [facility] EMERGENCY PROVIDER REPORT REPORT#:[id number] REPORT STATUS: Signed DATE:07/06/21 TIME: 858 PATIENT: LAUREN AGUIRRE UNIT #: [id number] ROOM/BED: AGE: 21 SEX: F PCP PHYS: Lexie Campuzano MD SERVICE AUTHOR: Fany Aviles MD * ALL edits or amendments must be made on the electronic/computer document * ISAI History Chief complaint: chest pain HPI: Pt reports that as she was getting up this morning to go to [place] when she developed CP "like someone was sitting on my chest" assoc with SOB. She denies palpitations or lightheadedness. She reports the episode lasted about 30 min and has not recurred. She admits to contractions q 5 min. She denies LOF, bleeding. She reports good FM. She has no pain other than the contractions. history: : 2 Term: 0 : 1 Abortus: 0 Living children: 1 Complications (prev preg): induction due to "mental breakdown" Previous : none Current : EDC: 07/28/21 EGA (weeks/days): 36 weeks (6 days) Conditions of : insufficient PNC Past medical history: depression Past surgical history: Left knee Social history: employed ([employer] ), single, no alcohol use, no tobacco use, no drug use Family history 1st Psychiatric hospitalization Medications: Home Medications: Medication Dose/Rte/Freq Days Qty Entered Last Max Daily Dose Reviewed PNV WITH FE 1 TAB PO DAILY 07/06/21 07/06/21 FUMARATE/FA 1719 9948 () Strength: 1 EACH TAB Current Hospital Medications: Antihistamine Drugs Sig/Bree Start time Last Medication Dose Route Stop Time Status Admin Hydroxyzine HCl 25 MG Q6H PRN PRN 07/06 182 AC (ATARAX 25MG TABLET) PO 09/04 1821 Central Nervous System Agents Sig/Bree Start time Last Medication Dose Route Stop Time Status Admin Acetaminophen 650 MG Q4H PRN PRN 07/06 1805 AC (TYLENOL 325MG PO 09/04 180 TABLET) Trazodone HCl 50 MG BEDTIME PRN PRN 07/06 1805 AC (DESYREL) PO 09/04 1806 Diagnostic Agents Sig/Bree Start time Last Medication Dose Route Stop Time Status Admin Iopamidol 0 .STK-MED ONE 07/06 1112 DCr (ISOVUE-370) .ROUTE Iopamidol 0 .STK-MED ONE 07/06 1048 DCr (ISOVUE-370) IV Iopamidol 60 ML ONCE PRN 07/06 1030 DC 07/06 (ISOVUE-370) IV 1056 Gastrointestinal Drugs Sig/Bree Start time Last Medication Dose Route Stop Time Status Admin Al Hydrox/Mg Hydrox/ 30 ML Q4H PRN PRN 07/06 1805 AC Simethicone PO 09/04 180 (MAALOX PLUS) Docusate Sodium 100 MG DAILY PRN PRN 07/06 1805 AC (COLACE 100MG PO 09/04 180 CAPSULE) Magnesium Hydroxide 30 ML DAILY PRN PRN 07/06 1805 AC (MILK OF MAGNESIA) PO 09/04 180 Ondansetron HCl 4 MG Q8H PRN PRN 07/06 1805 AC (ZOFRAN) PO 09/04 180 Skin And Mucous Membrane Agent Sig/Bree Start time Last Medication Dose Route Stop Time Status Admin Camphor/White See Dose ASDIR PRN 07/06 1805 AC Petrolatum Insts (1) TOPICAL 09/04 180 (CARMEX LIP BALM) Vitamins Sig/Bree Start time Last Medication Dose Route Stop Time Status Admin Multivi/Iron Carb/Fe 1 EACH DAILY 07/07 0900 AC Sulf/FA/Prenat PO 09/05 0901 (MATERNA) Dose Instructions: (1)Camphor/White Petrolatum (CARMEX LIP BALM): APPLY TO LIPS Allergies Coded Allergies: No Known Allergies (07/06/21) Review of Systems Constitutional: Denies: chills, fever. Skin: Denies: itching, rash. Eyes: Denies: visual loss/blurred. ENT: Denies: sore throat. Respiratory: Reports: SOB. Denies: non productive cough, productive cough (sputum). Cardiovascular: chest pain. Denies: palpitations. GI: Denies: abdominal pain, constipation, diarrhea, nausea, vomiting. : Reports: . Denies: dysuria, flank pain, vaginal bleeding, vaginal discharge. Musculoskeletal: lumbar pain. Denies: extremity pain, extremity swelling. Neuro: Denies: headache, vision change. Psych: depression (lifelong). Denies: agitation, anxiety, homicidal ideation, suicidal ideation. Objective General VS: Last Documented: Result Date Time Pulse Ox 99 05/05 0807 B/P 118/80 05/05 0807 B/P Mean 92 05/05 0807 O2 Delivery Room air 05/05 0807 Temp 98.0 05/05 0807 Pulse 78 05/05 0807 Resp 18 05/05 0807 Vital Signs Date Temp Pulse Resp B/P B/P Mean Pulse Ox FiO2 05/05 97.8-98.0 78-81 16-18 118-123/78-80 92-93 99-100 PATIENT WEIGHT: Weight (lb): Weight (oz): Weight (kg): 69.091 Notes: General: Pleasant, cooperative, conversant, NAD Neck: Supple without mass, adenopathy or thyromegaly Psych: Flat affect Physical Exam HEENT: normocephalic w/o injury, no scleral icterus Cardiac: regular rate and rhythm, no rubs Lungs: clear to auscultation, unlabored breathing Breasts: deferred Neuro: Exam: alert, oriented x3, normal speech DTR's (lower extr): normal 1-2+, no clonus Abdomen: gravid, soft, nontender Musculoskeletal: no CVA tenderness Uterine activity: Monitor: toco Pelvic exam: Pelvis clinically adequate: yes Vulvar lesions: none, no evidence herpetic les, no evidence of other STD Vagina: normal, non-septated Exam: soft, non-tender Cervical/ exam: Dilatation (cm): 2-3 Effacement (%): 40 Est wt (gms): 2700 station: - 3 presentation: cephalic FHR evaluation: Baseline: 130 bpm Variability: moderate 6-25 bpm Accelerations: 15 X 15 Decelerations: none FHR category: category 1 Lower extremities: Edema: none Toro's sign: negative Calf tenderness: negative Results Findings/Data: Laboratory Tests: 07/06 07/06 07/06 07/06 1458 1015 0915 0718 Chemistry Troponin I High Sens (< 51 ng/L) 4 5 Serology SARS-CoV-2 Ag (Rapid) (Negative) NEGATIVE Toxicology Urine Opiates Screen (NEGATIVE) NEGATIVE Ur Barbiturates Screen (NEGATIVE) NEGATIVE Ur Phencyclidine Scrn (NEGATIVE) NEGATIVE Ur Amphetamine Screen (NEGATIVE) NEGATIVE MDMA (NEGATIVE) NEGATIVE U Benzodiazepines Scrn (NEGATIVE) NEGATIVE Urine Cocaine Screen (NEGATIVE) NEGATIVE U Cannabinoids Screen (NEGATIVE) POSITIVE H 07/06 07/06 0758 0797 Chemistry Sodium (133 - 145 MMOL/L) 138 Potassium (3.6 - 5.2 MMOL/L) 3.9 Chloride (100 - 108 MMOL/L) 103 Carbon Dioxide (22 - 32 MMOL/L) 26 BUN (6 - 20 MG/DL) 7 Creatinine (0.60 - 1.00 MG/DL) 0.48 L Estimated GFR (MDRD) (71 - 165) 162 Glucose (65 - 99 MG/DL) 87 Calcium (8.7 - 10.5 MG/DL) 8.9 Total Bilirubin (0.0 - 1.0 MG/DL) 0.6 Direct Bilirubin (0.0 - 0.3 MG/DL) 0.1 Indirect Bilirubin (0.0 - 0.7 MG/DL) 0.5 AST (15 - 37 Units/L) 24 ALT (30 - 65 Units/L) 16 L Alkaline Phosphatase (50 - 136 Units/L) 175 H Total Protein (6.4 - 8.2 G/DL) 7.2 Albumin (3.4 - 5.0 G/DL) 2.9 L Globulin (1.5 - 3.8 G/DL) 4.3 H Albumin/Globulin Ratio (1.1 - 2.2) 0.7 L Lipase (73 - 393 Units/L) 159 Hematology WBC (4.80 - 10.80 x10 3/uL) 9.05 RBC (4.2 - 5.4 x10 6/uL) 3.97 L Hgb (12.0 - 16.0 G/DL) 12.4 Hct (37 - 47 %) 37.0 MCV (81 - 99 FL) 93.2 MCH (27 - 31 PG) 31.2 H MCHC (33 - 37 G/DL) 33.5 RDW Coeff of Colleen (11.5 - 14.5 %) 12.5 Plt Count (150 - 450 x10 3/uL) 244 MPV (7.4 - 10.4 FL) 10.4 Neut % (Auto) (42 - 86 %) 66.4 Lymph % (Auto) (24 - 44 %) 24.0 [place] % (Auto) (0.0 - 4.0 %) 7.0 H Eos % (Auto) (0.0 - 2.7 %) 1.1 Baso % (Auto) (0.0 - 0.5 %) 0.3 Eos # (Auto) (0.0 - 0.5 x10 3/uL) 0.10 Baso # (Auto) (0.0 - 0.2 x10 3/uL) 0.03 Abs Immat Gran (auto) (0.00 - 0.03 x10 3/uL) 0.11 H Absolute Neuts (auto) (1.8 - 7.7 x10 3/uL) 6.01 Absolute Lymphs (auto) (1.0 - 4.8 x10 3/uL) 2.17 Absolute Monos (auto) (0.0 - 0.8 x10 3/uL) 0.63 Absolute Nucleated RBC (0.0 - 0.2 X10 3/uL) 0.0 Immature Gran % (0.0 - 2.0 %) 1.2 Nucleated RBC % (0.0 - 0.0 %) 0.0 Urines Urine HCG, Qual (NEGATIVE) POSITIVE H 07/06 0722 Urines Ur Spec Description Clean Catch Urine Color (YELLOW) Light-Yellow Urine Appearance (CLEAR) Turbid Urine pH (5.5 - 7.0) 8.0 H Ur Specific [place] (1.001 - 1.035) 1.024 Urine Protein (NEGATIVE mg/dL) 20 Urine Glucose (UA) (NEGATIVE mg/dL) NORMAL Urine Ketones (NEGATIVE mg/dL) NEGATIVE Urine Blood (NEGATIVE) NEGATIVE Urine Nitrite (NEGATIVE) NEGATIVE Urine Bilirubin (NEGATIVE) NEGATIVE Urine Urobilinogen (NORMAL mg/dL) NORMAL Ur Leukocyte Esterase (NEGATIVE) 75 Urine RBC (NONE SEEN #/HPF) 0-2 Urine WBC (0 - 10 #/HPF) < 10 Ur Squamous Epith Cells (<100 #/LPF) > 100 Urine Bacteria (NONE SEEN HPF) Trace Urine Mucus (NONE SEEN #/lpf) RARE Urine Culture Screen Criteria not met Urine Comment VOLUME 10-12 ML Microbiology: Date/Time Procedure - Status Source Growth 07/06 1854 Group B Streptococcus Culture - RECD VAGINA/REC Recent Impressions: CAT SCAN - CTA CHEST FOR PE 07/06 1100 Report Impression - Status: SIGNED Entered: 07/06/2021 1149 IMPRESSION: Nondiagnostic in evaluation for acute pulmonary artery embolism due to inadequate opacification of the pulmonary arteries. Clear lungs. Impression By: [email or web address] - Anthony Marroquin MD NUCLEAR MEDICINE - NM PULM PERF PARTIC 07/06 1400 Report Impression - Status: SIGNED Entered: 07/06/2021 1501 IMPRESSION: Normal perfusion scan. Impression By: Tito Friedman MD ULTRASOUND - DUP VEIN NAIN 07/06 1445 Report Impression - Status: SIGNED Entered: 07/06/2021 1547 IMPRESSION: No evidence of deep venous thrombus in the visualized portions of the bilateral lower extremities. Impression By: [email or web address] - Shayan Marquez MD Diagnosis, Assessment Plan Diagnosis, Assessment Plan Free Text A P: 21 y/o at 36w6d false labor reassuring status CP/SOB resolved Heart Score 0 - EKG normal per Aure Velásquez and Brien, Troponin normal - repeat Troponin now to ensure no change CTA chest to r/o PE - expl risk of childhood leukemia assoc with radiation exposure and suppression or thyroid activity from contrast exposure. Pt accepts risks and desires to proceed with CTA. Comments: 1922 EMS here for transport final cx exam unchanged Cleared for transfer to [place] L/W discussed with patient Re-Evaluation/Progress #1: Text/Dict Note Pt reports she was not forthcoming at initial history. She reports that she has suicidal ideation, no homicidal ideation. She report that about 2-3 wk ago [place] 120[place] barrier wall but stopped herself "because I was on my way home to my son and I couldn't do that to him". Will contact psychiatry for further eval. Re-Evaluation/Progress #2: Text/Dict Note Cx unchanged cat 1 FHRT infrequent ctx all c/w false labor d/w pt nondiagnostic study with CTA chest. Pt reports that without definitive findings she is going to cont to worry about the poss of missed PE despite low prob of this dx. Discussed NM study for further eval and pt desires this to be done. Will also get LE dopplers to r/o DVT D/w Dr Dasilva pt suicidal ideation and recent near attempt. She recommends admission to [facility] once medical clearance completed. Pt consents to transfer. SS contacted to initiate transfer process. Time of Re-Eval 1243 Re-Evaluation/Progress #3: Text/Dict Note NM perfusion scan and LE dopplers normal Pt cleared medically/obstetrically for txfr to [facility]. Time of Re-Eval 1655 Re-Evaluation/Progress #4: Text/Dict Note Pt severe anxiety, crying, vomiting, hyperventilating FHRT cat 1 monitors removed as they are contributing to anxiety. cx unchanged Time of Re-Eval 1923 at 1926 RPT #:[id number] END OF REPORT [facility] 2021-07-06 07:36:00 [facility] ([facility] OR A CAMPUS OF [facility] EMERGENCY PROVIDER REPORT REPORT#:[id number] REPORT STATUS: Signed DATE:07/06/21 TIME: 735 PATIENT: LAUREN AGUIRRE UNIT #: [id number] ROOM/BED: AGE: 21 SEX: F PCP PHYS: Lexie Campuzano MD SERVICE AUTHOR: Kimberli Velásquez MD * ALL edits or amendments must be made on the electronic/computer document * HPI-General Illness General Confirmed Patient Yes Initial Greet Date/Time 07/06/21 0716 Presentation Chief Complaint Abdominal pain, Chest pain Sudden in Onset? No Free Text HPI Notes Free Text HPI Notes Patient is a at 36 weeks gestation. She presents today complaining of abdominal pain that radiates to her pelvis and she describes it as pressure. Patient says she had it occasionally over the past week but since last night it has become more consistent. This morning she says she is having episodes every 5 minutes. She says the contractions have become strong enough for a takes her breath away so she came to the emergency room to be evaluated for shortness of breath. Patient denies any vaginal bleeding. No leakage of fluids. She said she felt the baby move overnight but not this morning. Patient delivered her first baby at 35 weeks gestation because she was induced secondary to "a mental breakdown" Review of Systems ROS Statements All systems rev neg except as marked. Review of Systems Cardiovascular Reports: Chest pain. Female Reports: Pelvic pain, . Past Medical History - Adult Stated Complaint ABD PAIN AND CHEST TIGHTNESS Allergies Coded Allergies: No Known Allergies (07/06/21) Home Medications Reported Medications [PROVENTIL] 2 PUFFS INH Q4 HRS PRN DOXEPIN (SINEquan) 50 MG PO BEDTIME FLUoxetine (PROzac) 20 MG PO BEDTIME hydrOXYzine PAMOATE (VISTARIL) 25 MG PO BID PRN ANXIETY VENLAFAXINE XR (EFFEXOR XR) 150 MG PO DAILY Calculated Suicide Risk (nurs) No risk Additional Medical History none Additional Surgical History left knee surgery Alcohol Use Denies EtOH use Drug Use Denies recreational drugs Smoking status: Smoking status for patients 13 years old or older: Never Smoker Physical Exam Vital Signs Vital Signs First Documented: Result Date Time Pulse Ox 100 07/06 0712 B/P 123/78 07/06 0712 B/P Mean 93 / 0712 O2 Delivery Room air 07/06 07 Temp 36.6 / 07 Pulse 81 / 07 Resp 16 07/06 07 Last Documented: Result Date Time Pulse Ox 99 / 0807 B/P 118/80 / 0807 B/P Mean 92 07/06 08 O2 Delivery Room air / 08 Temp 36.7 05/ 08 Pulse 78 05/ 0807 Resp 18 05/ 0807 Review of Vital Signs Reviewed Physical Exam General/Const General/Const Awake, Alert, Well appearing MS Head Head Normocephalic Eyes Eyes PERRL Ears/Nose/Throat Ears/Nose/Throat Airway patent, Mucous membranes moist, Pharynx NL MS Neck Neck Supple, No meningismus, Full range of motion, No swelling, Non-tender, No masses Resp/Chest Respiratory/Chest Breath sounds NL, Breath sounds = bilat, No respiratory distress, No rales, No rhonchi, No wheezing Cardiovascular Cardiovascular Heart rate NL, Regular rhythm, Heart sounds NL, Cap refill not delayed, Peripheral circulation NL Abdomen/GI Text/Dict Notes Nontender, gravid consistent with dates. No rebound. No guarding. MS Back Back Inspection NL, Painless range of motion, Non-tender, No CVA tenderness MS Upper Extrem Upper Extremity/MS Inspection NL, No swelling, Non-tender, No erythema, No deformity, Neurologic intact, Vascular intact, No clubbing/cyanosis MS Wrist/Hand Wrist/Hand Inspection NL, No swelling, No erythema, Non-tender, No deformity, Neurologic intact, Vascular intact, No clubbing/cyanosis MS Lower Extrem Lower Ext/Pelvis/MS Inspection NL, No swelling, Non-tender, No erythema, No deformity, Neurologic intact, Vascular intact, No edema MS Ankle/Foot Ankle/Foot Inspection NL, No swelling, No erythema, Non-tender, No deformity, Neurologic intact, Vascular intact, No edema Skin Skin Color NL, Warm, Dry, Turgor NL Genitourinary Female Genitourinary External genitalia NL, No bleeding, No discharge, No lesions or rash Text/Dict Notes Os open 3 to 4 cm. Neurologic Neurologic Oriented X3, Speech NL, No motor deficits, No sensory deficits Psychiatric Psychiatric Affect NL, Mood NL, Thought content NL Interpretation Diagnostics Lab Results Interpretation Results Laboratory Tests 07/06/21 0733: [Embedded Image Not Available] Laboratory Tests: 07/06 07/06 07/06 07/06 1015 0915 0733 0733 Chemistry Sodium (133 - 145 MMOL/L) 138 Potassium (3.6 - 5.2 MMOL/L) 3.9 Chloride (100 - 108 MMOL/L) 103 Carbon Dioxide (22 - 32 MMOL/L) 26 BUN (6 - 20 MG/DL) 7 Creatinine (0.60 - 1.00 MG/DL) 0.48 L Estimated GFR (MDRD) (71 - 165) 162 Glucose (65 - 99 MG/DL) 87 Calcium (8.7 - 10.5 MG/DL) 8.9 Total Bilirubin (0.0 - 1.0 MG/DL) 0.6 Direct Bilirubin (0.0 - 0.3 MG/DL) 0.1 Indirect Bilirubin (0.0 - 0.7 MG/DL) 0.5 AST (15 - 37 Units/L) 24 ALT (30 - 65 Units/L) 16 L Alkaline Phosphatase (50 - 136 Units/L) 175 H Troponin I High Sens (< 51 ng/L) 4 5 Total Protein (6.4 - 8.2 G/DL) 7.2 Albumin (3.4 - 5.0 G/DL) 2.9 L Globulin (1.5 - 3.8 G/DL) 4.3 H Albumin/Globulin Ratio (1.1 - 2.2) 0.7 L Lipase (73 - 393 Units/L) 159 Hematology WBC (4.80 - 10.80 x10 3/uL) 9.05 RBC (4.2 - 5.4 x10 6/uL) 3.97 L Hgb (12.0 - 16.0 G/DL) 12.4 Hct (37 - 47 %) 37.0 MCV (81 - 99 FL) 93.2 MCH (27 - 31 PG) 31.2 H MCHC (33 - 37 G/DL) 33.5 RDW Coeff of Colleen (11.5 - 14.5 %) 12.5 Plt Count (150 - 450 x10 3/uL) 244 MPV (7.4 - 10.4 FL) 10.4 Neut % (Auto) (42 - 86 %) 66.4 Lymph % (Auto) (24 - 44 %) 24.0 [place] % (Auto) (0.0 - 4.0 %) 7.0 H Eos % (Auto) (0.0 - 2.7 %) 1.1 Baso % (Auto) (0.0 - 0.5 %) 0.3 Eos # (Auto) (0.0 - 0.5 x10 3/uL) 0.10 Baso # (Auto) (0.0 - 0.2 x10 3/uL) 0.03 Abs Immat Gran (auto) (0.00 - 0.03 0.11 H x10 3/uL) Absolute Neuts (auto) (1.8 - 7.7 x10 3/uL) 6.01 Absolute Lymphs (auto) (1.0 - 4.8 2.17 x10 3/uL) Absolute Monos (auto) (0.0 - 0.8 x10 3/uL) 0.63 Absolute Nucleated RBC (0.0 - 0.2 0.0 X10 3/uL) Immature Gran % (0.0 - 2.0 %) 1.2 Nucleated RBC % (0.0 - 0.0 %) 0.0 Toxicology Urine Opiates Screen (NEGATIVE) NEGATIVE Ur Barbiturates Screen (NEGATIVE) NEGATIVE Ur Phencyclidine Scrn (NEGATIVE) NEGATIVE Ur Amphetamine Screen (NEGATIVE) NEGATIVE MDMA (NEGATIVE) NEGATIVE U Benzodiazepines Scrn (NEGATIVE) NEGATIVE Urine Cocaine Screen (NEGATIVE) NEGATIVE U Cannabinoids Screen (NEGATIVE) POSITIVE H 07/06 07/06 0722 0722 Urines Ur Spec Description Clean Catch Urine Color (YELLOW) Light-Yellow Urine Appearance (CLEAR) Turbid Urine pH (5.5 - 7.0) 8.0 H Ur Specific [place] (1.001 - 1.035) 1.024 Urine Protein (NEGATIVE mg/dL) 20 Urine Glucose (UA) (NEGATIVE mg/dL) NORMAL Urine Ketones (NEGATIVE mg/dL) NEGATIVE Urine Blood (NEGATIVE) NEGATIVE Urine Nitrite (NEGATIVE) NEGATIVE Urine Bilirubin (NEGATIVE) NEGATIVE Urine Urobilinogen (NORMAL mg/dL) NORMAL Ur Leukocyte Esterase (NEGATIVE) 75 A Urine RBC (NONE SEEN #/HPF) 0-2 Urine WBC (0 - 10 #/HPF) < 10 Ur Squamous Epith Cells (<100 #/LPF) > 100 A Urine Bacteria (NONE SEEN HPF) Trace Urine Mucus (NONE SEEN #/lpf) RARE Urine Culture Screen Criteria not met Urine HCG, Qual (NEGATIVE) POSITIVE H Urine Comment VOLUME 10-12 ML Recent Impressions: CAT SCAN - CTA CHEST FOR PE 07/06 1100 Report Impression - Status: SIGNED Entered: 07/06/2021 1149 IMPRESSION: Nondiagnostic in evaluation for acute pulmonary artery embolism due to inadequate opacification of the pulmonary arteries. Clear lungs. Impression By: [email or web address] - Anthony Marroquin MD ECG #1 Interpretation Date 07/06/21 Time 07 Interpreted by and reviewed by me NL ECG Interpretation Normal rate, Normal sinus rhythm, No acute ischemic changes, No STEMI Rate 81 Re-Evaluation MDM Free Text MDM Notes Free Text MDM Notes Spoke with [facility] on-call Dr. Fany Aviles and [facility] emergency room Dr. Turpin. Both are aware patient is being transferred to [facility] and have accepted patient in transfer. Emergent transfer to [facility] was requested. Timing patient's contractions while here in the ER and they appear to be approximately 17 minutes apart. Re-Evaluation/Progress #1 Time of Re-Eval 0744 Re-Eval Status Improved ED Course Medication(s) Ordered Medication(s) Ordered: Diagnostic Agents Sig/Bree Start time Last Medication Dose Route Stop Time Status Admin Iopamidol 0 .STK-MED ONE 07/06 1112 DCr .ROUTE Iopamidol 0 .STK-MED ONE 07/06 1048 DCr IV Iopamidol 60 ML ONCE PRN 07/06 1030 DC 07/06 IV 1056 Patient Discharge Departure Vital Signs/Condition Vital Signs First Documented: Result Date Time Pulse Ox 100 07/06 0712 B/P 123/78 07/06 0712 B/P Mean 93 / 0712 O2 Delivery Room air 07/06 07 Temp 36.6 07/06 07 Pulse 81 07/06 0712 Resp 16 07/06 07 Last Documented: Result Date Time Pulse Ox 99 / 0807 B/P 118/80 05/ 0807 B/P Mean 92 / 0807 O2 Delivery Room air 07/06 0807 Temp 36.7 / 0807 Pulse 78 / 0807 Resp 18 / 0807 All vital signs available at the time of this entry have been reviewed. Condition Stable Clinical Impression Clinical Impression Primary Impression: Premature labor Secondary Impressions: 36 weeks gestation of Disposition Decision Discharge )( Discharged to Home TO OB ER at [facility] via EMS )( Time 07 )( Date 07/06/21 Discharge/Care Plan Counseled Regarding Diagnosis, Need for admission, Need for transfer at 1311 RPT #[id number] END OF REPORT [facility] 2021-07-06 07:17:00 [id number] [place], [place] PATIENT NAME: LAUREN AGUIRRE ADMIT DATE: 07/06/21 ACCOUNT NO: [id number] ROOM NO: [id number] AGE: 21 REPORT TYPE: ELECTROCARDIOGRAM SEX: F : 99 ADMITTING PHYSICIAN:Laura Whitney MD ATTENDING PHYSICIAN:Laura Whitney MD Order: [id number] Test Reason : Test Date/Time Stamp: Amy May 05 2022 07:17:04 Blood Pressure : / mmHG Vent. Rate : 081 BPM Atrial Rate : 081 BPM P-R Int : 120 ms QRS Dur : 084 ms QT Int : 384 ms P-R-T Axes : 053 017 027 degrees QTc Int : 446 ms Normal sinus rhythm Normal ECG Confirmed by ANJUM Marti, KIMBERLI ([id number]), map editor JANNY VALVERDE ([id number]) on 07/07/2021 1:18:06 PM Referred By: Kimberli Velásquez Confirmed by:KIMBERLI VELÁSQUEZ M.D. at 1318 PATIENT NAME: LAUREN AGUIRRE [facility] 2021-04-02 18:51:00 [facility] ([facility]) OR A CAMPUS OF [facility] EMERGENCY PROVIDER REPORT REPORT#:[id number] REPORT STATUS: Signed DATE:04/02/21 TIME: 1850 PATIENT: LAUREN AGUIRRE UNIT #: [id number] ROOM/BED: AGE: 21 SEX: F PCP PHYS: Lexie Campuzano MD SERVICE AUTHOR: Carlo Dunbar MD * ALL edits or amendments must be made on the electronic/computer document * [facility] History Chief complaint: discomfort (vaginal spotting) HPI: This patient works at [employer] and noted some spotting on toilet paper after going to the bathroom. She was also having some lower back discomfort and came to the [facility] for an evaluation. She denies any recent coitus and reports FM. She also denies any Hx of fever/ chills or UTI related S/S. history: : 1 Term: 0 : 0 Abortus: 0 Living children: 0 Current : Comments: Unknown EDC (only 1 [facility] visit so far) Past medical history: denies PMH Family history 1st Psychiatric hospitalization Medications: Home Medications: Medication Dose/Rte/Freq Days Qty Entered Last Max Daily Dose Reviewed [PROVENTIL] 2 PUFFS INH 07/24/16 Strength: 17 GM INHALER Q4 HRS PRN 1821 DOXEPIN (SINEquan) 50 MG PO BEDTIME 07/31/16 Strength: 50 MG CAP 1157 FLUoxetine (PROzac) 20 MG PO BEDTIME 07/31/16 Strength: 20 MG CAP 1159 hydrOXYzine PAMOATE 25 MG PO 07/31/16 (VISTARIL) BID PRN ANXIETY 1201 Strength: 25 MG CAP VENLAFAXINE XR 150 MG PO DAILY 07/31/16 (EFFEXOR XR) 1202 Strength: 150 MG CAP.SR.24H Allergies Coded Allergies: No Known Allergies (07/05/14) Review of Systems All systems rev neg: except as marked Objective General VS: Last Documented: Result Date Time B/P Mean 81.0 04/02 1735 B/P 113/64 04/02 1735 Pulse 85 04/02 1735 Temp 98.8 04/02 1712 Resp 12 04/02 171 Vital Signs Date Temp Pulse Resp B/P B/P Mean Pulse Ox FiO2 04/02 98.8 85-87 12 113-120/64-72 81.0-90.0 PATIENT WEIGHT: Weight (lb): Weight (oz): Weight (kg): Physical Exam Cardiac: regular rate and rhythm Lungs: unlabored breathing Neuro: Exam: alert, oriented x3 DTR's (lower extr): normal 1-2+, no clonus Abdomen: gravid, soft, no abnormal tenderness Musculoskeletal: paraspinal tenderness, no CVA tenderness Genitourinary: no flank pain Uterine activity: Monitor: toco Frequency (description): none Cervical/ exam: Dilatation (cm): 0 - closed Effacement (%): 0 station: - 5 FHR evaluation: Baseline: 150 bpm Membranes: Membranes: Intact Lower extremities: Edema: none Additional comments: The fundus was palpated at 2 cm above the umbilicus (c/w a 22 week gestation). Formal FHR pattern was not possible due to her early EGA. But, no decelerations were noted and some accelerations (10 x 10) + moderate BTBV was apparent. FM was also audible on the EFM. Results Findings/Data: Recent Impressions: ULTRASOUND - US PREG AFTER 04/02 5819 Report Impression - Status: SIGNED Entered: 04/02/2021 0534 IMPRESSION: 1. Single live intrauterine fetus at 23 weeks sonographic age. 2. No acute findings. Impression By: [email or web address] - Surendra Roa MD Diagnosis, Assessment Plan Diagnosis, Assessment Plan Problem List/A P: 1. Limited care in second trimester 2. Vaginal spotting 3. Lumbago without sciatica 4. 23 weeks gestation of Free Text A P: This patient had normal OB sonogram findings (no placenta previa or sub-C bleeding). Her cervix was noted to be somewhat friable (C/T/H/posterior) and she had no vaginal spotting noted while in the [facility]. She was discharged to home in good condition with instructions to avoid strenuous physical activity. She is also to maintain pelvic rest until she has no signs of vaginal bleeding for a week. She will take warm baths/showers and wear a maternity support belt/strap during the day. She will also take PO Tylenol on a prn basis for her back discomfort. Plan discussed with: patient, family, nurse at 9528 RPT #:[id number] END OF REPORT [facility]
[2024-06-22] MEDS ORDERED: KETOROLAC 30 MG/ML INJ ONE (16:45)
[2024-06-22] MEDS ORDERED: HYDROCODONE/APAP 5/325 MG TAB ONE (16:45)
[2024-06-22 16:58] LABS: Specific Gravity > 1.030 (1.005-1.030); Sqamous Epithelial <5 /HPF (None Seen); Urine Bacteria None Seen /HPF (<20); Urine Bilirubin NEGATIVE (Negative); Urine Blood Negative (Negative); Urine Clarity Clear (Clear); Urine Color Light-Yellow (Yellow); Urine Glucose NEGATIVE (Negative); Urine Ketones NEGATIVE (Negative); Urine Micro Reflex YN NO BILL MICROSCOPIC; Urine Mucus Slight /HPF (None Seen); Urine Nitrite NEGATIVE (Negative); Urine Protein NEGATIVE (Negative); Urine RBC <5 /HPF (None Seen); Urine Urobilinogen Normal (Normal); Urine WBC <5 /HPF (<5)
--- NOTE | 2024-06-22 17:17 | RAD REPORT ---
EXAMINATION: Transvaginal Study Probe CLINICAL INDICATION: Pelvic pain TECHNIQUE: Real-time ultrasonography of the pelvis was performed transvaginally. Color and spectral D oppler evaluation of the ovaries was performed. COMPARISON: No prior exam. FINDINGS: The uterus measures 8 x 4 x 4 cm. The endometrial stripe measures 7 mm Right ovary normal in size and echotexture. Left ovary normal in size and echotexture. Right and left adnexa unremarkable No significant free fluid IMPRESSION: Unremarkable pelvic ultrasound
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
[2024-06-22 18:23] VITALS: O2SAT 100
[2024-06-22 18:27] VITALS: BP 105/55; TEMP 98.6
== END 2024-06-22 17:41 | disposition home or self-care (01) ==
LOC: ER 15:18
DX: R10.2 Pelvic and perineal pain (principal)
CPT/HCPCS: 76830; 81001; 81025; 96372; 99285